=== PATIENT | female | born 1935 | race Asian ===

== ENCOUNTER → 2019-04-26 | Outpatient (CLI) | payer MEDICARE, OTHER | END | disposition home or self-care (01) | LOC: RADMN 10:42 | PROVIDERS: ATTEND Internal Medicine Nephrology | DX: N13.30 Unspecified hydronephrosis (principal); N20.0 Calculus of kidney; N28.89 Other specified disorders of kidney and ureter; J98.11 Atelectasis; J47.9 Bronchiectasis, uncomplicated; K76.0 Fatty (change of) liver, not elsewhere classified; D73.89 Other diseases of spleen; K86.2 Cyst of pancreas; K43.9 Ventral hernia without obstruction or gangrene; M47.816 Spondylosis without myelopathy or radiculopathy, lumbar region; M85.88 Other specified disorders of bone density and structure, other site; Z98.890 Other specified postprocedural states | CPT/HCPCS: 74176 ==